=== PATIENT | female | born 1955 | race Caucasian/White ===

== ENCOUNTER 2024-12-21 18:43 | Emergency (ER) | payer OTHER, SELFPAY ==
[2024-12-21 18:45] VITALS: BP 141/87
[2024-12-21 19:03] LABS: Hematocrit 41.8 % (37.0-47.0); Hemoglobin 13.6 g/dL (12.0-16.0); Mean Corp Hgb Conc. 32.5 g/dL (33.0-37.0); Mean Corpuscular Volume 96.8 fL (81.0-99.0); Nucleated Red Blood Cells % 0 %; Platelet Count 185 10^3/uL (130-400); Red Cell Dist. Width 12.6 % (11.5-14.5)
[2024-12-21 19:19] LABS: ALT (SGPT) 25 U/L (0-35); AST (SGOT) 25 U/L (14-36); Albumin 4.6 g/dl (3.5-5.0); Alkaline Phosphatase 61 U/L (38-126); Blood Urea Nitrogen 27 mg/dl (7-17); Calcium 10.0 mg/dl (8.4-10.2); Carbon Dioxide 33 mmol/L (22-30); Chloride 101 mmol/L (98-107); Glucose 110 mg/dl (70-99); Potassium 4.7 mmol/L (3.5-5.1); Sodium 139 mmol/L (135-145); Total Protein 7.5 g/dl (6.3-8.2); eGFR > 60.00
[2024-12-22 00:07] VITALS: BMI 21.2
[2024-12-22 00:08] VITALS: BP 130/84
--- NOTE | 2024-12-22 00:17 | ED.GENMED ---
History of Present Illness
<Familia Sumner, DO - Last Filed: 12/23/24 02:11>
General
Chief Complaint: Abdominal Symptoms
Source: patient and spouse
Exam Limitations: none
Time Seen by Provider: 12/21/24 23:58
Nursing documentation reviewed up to this point in time: agreed with
History of Present Illness
History of Present Illness:
Note:
CHIEF COMPLAINT(S)
Abdominal pain and noticeable swelling in the abdominal area.
HISTORY OF PRESENT ILLNESS
The patient is a 69-year-old female presenting with acute abdominal pain and a noticeable bulge on the abdomen, which she described as looking like a 'golf ball.' The onset occurred today at approximately 2:30 PM after leaning on a cart while
rolling down a hallway. She noticed the bulge when leaning on the cart, and it was more prominent at that time, though it has since reduced in size. The pain is present on the side of the abdomen and is associated with a sensation of being gassy or
feeling that things arent passing through properly, despite her usual regularity with bowel movements. She denies any episodes of vomiting. Concerned by the size and appearance of the bulge, the patient presented to urgent care around 4:35 PM, where
the swelling appeared even larger, prompting her to come to the emergency department for further evaluation.
PAST MEDICAL AND SURGICAL HISTORY
The patient has a history of fertility-related procedures, a history of hysterosalpingogram, an ectopic , and two sections. There is no recent history of surgery stated.
PLAN
A computed tomography (CT) scan with oral and intravenous contrast will be performed to assess the nature of the abdominal swelling and investigate potential causes such as a hernia or bowel involvement. The patient has been informed that the
process will take approximately two hours, including the preparation time for drinking oral contrast. Intravenous fluids will be administered to address dehydration. The patient may consider returning home during the waiting period, given the
expected duration before results are available.
DIFFERENTIAL DIAGNOSIS
The Differential Diagnosis includes, in no particular order and is not limited to:
1. Hernia
2. Bowel obstruction
3. Abdominal mass
4. Hematoma
5. Lipoma
6. Ascites
7. Abdominal wall defect
8. Intestinal strangulation
9. Diverticulitis
10. Intra-abdominal abscess
Physical Exam
General: no apparent distress, not acutely ill
Neck: supple. no meningeal signs. normal posterior pharynx
Heart: s1/s2 regular rate and rhythm, no murmur. equal radial
pulses.
HEENT: Pupils equal round reactive to light, EOMI
Lungs: no acute respiratory distress. clear bilaterally
Abdomen: normal bowel sounds. Tender ventral hernia superior to umbilicus
Neuro: alert and oriented. no focal neurological deficits cranial nerves II through XII intact
Skin: no rash
Psychiatric: well kept. interactive and cooperative
Extremities: no edema. no calf tenderness. negative homans. good distal pulses
Phy Exam
<Familia Sumner, DO - Last Filed: 12/23/24 02:11>
Physical Exam
Physical Exam:
.
Course
<Familia Sumner, DO - Last Filed: 12/23/24 02:11>
Orders/Labs/Results
Orders:
Orders
12/21/24 18:55
Complete Blood Count/With Diff Urgent
Comprehensive Metabolic Panel Urgent
12/22/24 00:09
Iohexol [Omnipaque] See Protocol PO NOW STA
12/22/24 00:10
CT Abd/pel W Iv And Oral Contr Urgent
Comment:
Reason For Exam: epigastric abd pain, ventral hernia palpated
Abnormal Lab Results
12/21/24
18:55
MCH 31.5 H pg
(27.0-31.0)
MCHC 32.5 L g/dL
(33.0-37.0)
Carbon Dioxide 33 H mmol/L
(22-30)
BUN 27 H mg/dl
(17)
Glucose 110 H mg/dl
(70-99)
12/21/24 18:55
12/21/24 18:55
Vital Signs
Initial and Last Documented VS:
Initial Vital Signs
Temp Pulse Resp BP
98.1 F 58 18 141/87
12/21/24 18:45 12/21/24 18:45 12/21/24 18:45 12/21/24 18:45
Last Documented Vital Signs
Temp Pulse Resp BP Pulse Ox
97.6 F 56 16 128/83 99
12/22/24 04:42 12/22/24 04:42 12/22/24 04:42 12/22/24 04:42 12/22/24 04:42
<Saw Grajeda MD - Last Filed: 12/22/24 04:28>
Orders/Labs/Results
Orders:
Orders
12/21/24 18:55
Complete Blood Count/With Diff Urgent
Comprehensive Metabolic Panel Urgent
12/22/24 00:09
Iohexol [Omnipaque] See Protocol PO NOW STA
12/22/24 00:10
CT Abd/pel W Iv And Oral Contr Urgent
Comment:
Reason For Exam: epigastric abd pain, ventral hernia palpated
Abnormal Lab Results
12/21/24
18:55
MCH 31.5 H pg
(27.0-31.0)
MCHC 32.5 L g/dL
(33.0-37.0)
Carbon Dioxide 33 H mmol/L
(22-30)
BUN 27 H mg/dl
(09-20)
Glucose 110 H mg/dl
(70-99)
12/21/24 18:55
12/21/24 18:55
Vital Signs
Initial and Last Documented VS:
Initial Vital Signs
Temp Pulse Resp BP
98.1 F 58 18 141/87
12/21/24 18:45 12/21/24 18:45 12/21/24 18:45 12/21/24 18:45
Last Documented Vital Signs
Temp Pulse Resp BP Pulse Ox
97.6 F 56 16 128/83 99
12/22/24 04:42 12/22/24 04:42 12/22/24 04:42 12/22/24 04:42 12/22/24 04:42
<Familia Sumner DO - Last Filed: 12/23/24 02:11>
*Pulse Oximetry
SaO2: 100
Oxygen Mode of Delivery: Room air
Patient hypoxic: no
*Critical Care Note
Total Time (30-74mins, 75-104mins- exclusive of procedures): Not Applicable
<Saw Grajeda MD - Last Filed: 12/22/24 04:28>
Update Note
Update Note:
UPDATE (Saw Grajeda MD)
I have seen and evaluated the patient after signout and reviewed all labs and imaging.
Focused HPI: 69-year-old female presents to the ER for evaluation of periumbilical pain near apparent hernia. Patient says that she started having some pain a few days ago but more severe today. She reports localized pain near abdominal wall
hernia. She denies any nausea or vomiting (triage note mentions nausea and vomiting but patient denies). She is moving her bowels. No fever or chills. No other acute complaints. She says she was moving some heavy planters recently and thinks
that this may have triggered her symptoms.
Physical exam: Awake and alert not in distress. Vital signs normal. Abdomen soft, palpable hernia just superior to the umbilicus relatively small. I was able to reduce it with some effort at bedside.
Medical Decision Makin-year-old female presents with pain from abdominal wall hernia. She had lab work sent off which showed no clinically significant abnormalities. She had a CT which showed fat-containing hernia but no bowel herniation. No
signs of obstruction. I was able to reduce the hernia here. Stable for discharge, surgery referral as an outpatient. Patient comfortable with this plan. All questions answered.
ED Attending Note
<Familia Sumner, DO - Last Filed: 12/23/24 02:11>
-
Portions of this chart may have been created with voice recognition software.� Occasional wrong word or��sound alike� substitutions may have occurred due to the inherent limitations of voice recognition software.
Discharge Plan
Departure
Patient Disposition: Home (Routine Discharge)
Date of Disposition: 12/22/24
Time of Disposition: 04:27
Patient with high blood pressure during this ER visit?: No
Discharge Problem:
Incarcerated hernia
Instructions: Abdominal wall hernias
Prescriptions:
No Action
sertraline [Zoloft] 50 mg Tablet
50 mg PO DAILY
Multi For Her 50 Plus 400-80 mcg Capsule
1 cap PO DAILY
Referrals:
Slim Mead MD [Active, Surgical] - Call in 1-3 days for appt
Natalia Sams NP [Family Provider]
Stand Alone Forms: Return to Work
Activity Restrictions/Additional Instructions:
Thank you for visiting the Emergency Department at [facility].
1. Please schedule a follow up appointment as directed. Call first thing tomorrow morning to make an appointment.
2. If indicated, please take your medications as instructed and indicated on discharge paperwork.
3. If any of your symptoms do not improve, or persist, or become more severe within 6-12 hours, please return to the emergency department for further care.
4. Please return to the emergency department if you develop a headache, neck pain/stiffness, fever greater than 100.4F, chest pain, shortness of breath, persistent nausea, vomiting, slurred speech, difficulty walking, numbness/tingling, weakness,
signs of infection or any other symptoms that are worrisome to you.
Please call [phone] if you have any questions.
Interventions
Interventions:
*Risk Screen - Suicide Last Done: 12/21/24 18:49
*General Assessment Last Done: 12/21/24 18:49
*Neglect/Abuse Screening Last Done: 12/21/24 18:49
*ED- Fall Risk Assessment Last Done: 12/22/24 04:44
*ED COVID-19 Vaccine History Last Done: 12/21/24 18:49
*ED Influenza Vaccine History Last Done: 12/21/24 18:49
*Nursing Disposition Last Done: 12/22/24 04:44
UQ-Squikl-Zudktdaeom Assessment Last Done: 12/22/24 00:08
Discharge Date and Time
Discharge Date/Time: 12/22/24 05:15
Print Language: URDU
[2024-12-22] MEDS: OMNIPAQUE 50 ML PO (00:19)
[2024-12-22 03:09] VITALS: BP 119/76
[2024-12-22 04:42] VITALS: BP 128/83
== END 2024-12-22 05:15 | disposition home or self-care (01) ==
LOC: EMR 18:43
PROVIDERS: Emergency Medicine; EMERGENCY PHYSICIAN Emergency Medicine; FAMILY PHYSICIAN Nurse Practitioner Adult Health
DX: K43.6 Other and unspecified ventral hernia with obstruction, without gangrene (principal)
CPT/HCPCS: 99284; 74177; 80053; 85025; Q9967